=== PATIENT | female | born 1995 | race Hispanic/Latino ===

== ENCOUNTER 2019-07-21 14:48 | Emergency (ER) | payer OTHER, SELFPAY ==
[2019-07-21 14:53] VITALS: BP 135/71; PULSE 96; RESP 15; TEMP 36.8; O2SAT 99; BMI 21.9
--- NOTE | 2019-07-21 14:57 | ED_ITS ---
HPI - Back Pain/Injury General Chief Complaint: Back Pain/Injury Stated Complaint: LOWER BACK PAIN Time Seen by Provider: 07/21/19 14:50 Source: patient Limitations: no limitations History of Present Illness HPI Narrative: 23-year-old female nonsmoker with history of scoliosis presents with her mother and a chief complaint of severe, and worsening lumbar pain over the past 2 weeks. She denies any specific injury. She states that any motion and sitting for too long makes the pain much worse. She denies radicular symptoms such as radiation of the pain, or any signs consistent with cauda equina such as lower extremity weakness, trouble controlling bowel or bladder, foot drop or other. Her last images or 2 years ago in included a CT scan here which was essentially unremarkable except for a 22 degree left convex scoliosis MD Complaint: back pain Onset (ago): week(s) Duration: constant Similar Symptoms Previously: Yes Location: lumbar spine Severity: moderate Quality: aching Relieving factors: none Exacerbating factors: sitting upright and walking Associated symptoms: denies other symptoms Related Data Previous Rx's Medication Instructions Recorded norgestimate 0.25 mg-ethinyl 1 tab PO DAILY #28 tab 03/10/19 estradiol 35 mcg tablet ketorolac 10 mg PO Q6H PRN #14 tab 07/21/19 lidocaine [Lidoderm] 1 patch TOP DAILY #15 each 07/21/19 Allergies Allergy/AdvReac Type Severity Reaction Status Date / Time No Known Drug Allergies Allergy Verified 07/21/19 14:53 Review of Systems Constitutional Constitutional: Denies chills, Denies fatigue, Denies fever(s), Denies frequent falls, Denies lethargy and Denies weakness Eyes Eyes: Denies change in vision, Denies eye discharge, Denies irritation and Denies loss of vision ENT Ears, Nose, Mouth, and Throat: Denies change in voice, Denies dizziness, Denies neck pain, Denies sore throat and Denies throat swelling Cardiovascular Cardiovascular: Denies chest pain, Denies irregular heart rhythm, Denies lightheadedness, Denies palpitations, Denies dyspnea, Denies dyspnea on exertion and Denies orthopnea Respiratory Respiratory: Denies cough, Denies dyspnea, Denies dyspnea on exertion and Denies wheezing Gastrointestinal Gastrointestinal: Denies abdominal pain, Denies change in bowel habits, Denies diarrhea, Denies nausea and Denies vomiting Genitourinary Genitourinary: Denies hematuria, Denies flank pain, Denies urinary incontinence and Denies urinary urgency Musculoskeletal Musculoskeletal: Reports back pain, Denies muscle weakness, Denies neck pain, Denies numbness and Denies tingling Integumentary/Breasts Skin/Breast: Denies pruritus, Denies erythema, Denies rash and Denies wounds Neurologic Neurologic: Denies behavioral changes, Denies confusion, Denies dizziness, Denies frequent falls, Denies loss of vision, Denies numbness, Denies tingling and Denies weakness Psychiatric Psychiatric: Denies anxiety, Denies behavioral changes, Denies confusion, Denies depression, Denies homicidal ideation and Denies suicidal ideation Endocrine Endocrine: Denies fatigue, Denies flushing and Denies palpitations Hematologic/Lymphatic Hematologic/Lymphatic: Denies easy bruising Allergic/Immunologic Allergic/Immunologic: Denies urticaria, Denies throat swelling and Denies wheezing Patient History Surgical History History of third molar tooth extraction Social History Smoking Status: Never smoker alcohol intake frequency: holidays/special occasions only Substance Use Type: does not use Exam Narrative Exam Narrative: GEN: AOx3 and in mild distress EYES: Pupils are equal, round, and reactive to light and accommodation. Extraoccular muscles are intact bilaterally. There is no subconjunctival hemorrhage or exudate. CHEST: Lungs are clear to auscultation bilaterally and free of wheezes, rales, or rhonchi. Heart rate is regular rhythm, there are no murmurs, clicks, rubs, or gallops. There is no chest wall tenderness. ABD: Abdomen is soft and nontender. There is no guarding or rebound. Bowel sounds are normal in all 4 quadrants. There is no mass or organomegaly. EXT: Full painless ROM of all extremities with no loss of sensation or strength. SKIN: Warm, pink, and dry. No erythema or rash BACK: body rolling machine tender but free of any obvious external abnormalities. Patient exam notes decreased range of motion and muscle spasm, but no CVA tenderness, or vertebral point tenderness. There are no symptoms of cauda equina such as saddle anesthesia, and decreased reflexes, decreased sensation or strength. Initial Vital Signs Initial Vital Signs: Vital Signs Temperature 98.2 F 07/21/19 14:53 Pulse Rate 96 H 07/21/19 14:53 Respiratory Rate 15 07/21/19 14:53 Blood Pressure 135/71 07/21/19 14:53 Pulse Oximetry 99 07/21/19 14:53 Course Orders Ordered: ED Orders 07/21/19 14:58 XR lumbar spine 2-3V Stat Discontinued Medications Ketorolac Tromethamine (Toradol) 60 mg IM NOW ONE Stop: 07/21/19 15:32 Last Admin: 07/21/19 15:39 Dose: 60 mg Documented by: KRIS Vital Signs Vital signs: Vital Signs - 8 hr 07/21/19 14:53 Temperature 98.2 F Pulse Rate 96 H Respiratory Rate 15 Blood Pressure 135/71 Pulse Oximetry 99 MDM - Back Pain/Injury MDM Narrative Medical decision making narrative: Multiple etiologies of back pain considered including; Epidural abscess, cauda equina, mass occupying lesion, and other considered Discharge Plan Departure Patient Disposition: Home Clinical Impression: Acute back pain Qualifiers: Back pain location: low back pain Back pain laterality: right Sciatica presence: without sciatica Qualified Code(s): M54.5 - Low back pain Instructions: DI for Low Back Pain Activity Restrictions/Additional Instructions: *You have been diagnosed with [low back pain] *What to do: *Take medications as directed *Follow up with your primary care provider in 2-3 days, call for an appointment. Let them know you were seen in the Emergency Department and that we ask that you be seen in follow up *Return to ER if you should have any new, worsening or concerning symptoms, such as [increasing pain or neurologic symptoms including trouble with her bowel, bladder, weakness of your legs or numbness in her groin.] Prescriptions: New ketorolac 10 mg tablet 10 mg PO Q6H PRN (Reason: pain) Qty: 14 RF: 0 lidocaine [Lidoderm] 5 % adhesive patch,medicated 1 patch TOP DAILY Qty: 15 RF: 0 No Action norgestimate-ethinyl estradiol [Estarylla] 0.25-35 mg-mcg tablet 1 tab PO DAILY Qty: 28 RF: 11 Referrals: Diana Singh MD [Primary Care Provider] -
--- NOTE | 2019-07-21 14:58 | DI.RAD.S_ITS ---
PROCEDURE: XR LUMBAR SPINE 2-3V INDICATIONS: lumbar pain TECHNIQUE: 3 views of the lumbar spine were acquired. COMPARISON: [facility], CT, L-SPINE WITHOUT CONTRAST, 09/19/2017, 13:15. FINDINGS: Bones: There are 5 lumbar-type vertebral bodies. The lowest intervertebral disk space is designated as L5-S1. The vertebral body heights are well-maintained without evidence to suggest an acute compression fracture. The bone mineralization is within normal limits. On the frontal view, there is mild levoconvex curvature, centered at the L3 level that measures approximately 12?. This appears to be less prominent on the current exam when compared to the CT of the lumbar spine. No significant degenerative changes of the lumbar spine are evident. Soft tissues: The soft tissues of the imaged abdomen and pelvis are within normal limits. IMPRESSION: 1. No acute fractures or significant degenerative changes of the lumbar spine. 2. Mild levoconvex curvature of the lumbar spine is less pronounced on this study when compared to the lumbar CT, which may be related to differences in positioning and technique. Dictated by: Raghav Grewal M.D. on 07/21/2019 at 14:43 Approved by: Raghav Grewal M.D. on 07/21/2019 at 14:46
[2019-07-21] MEDS: KETOROLAC 60 MG/2 ML VIAL IM (15:39)
--- NOTE | 2019-07-21 15:45 | PC.NURSE ---
Patient refuses ketoroac IM injection.
== END 2019-07-21 16:05 | disposition home or self-care (01) ==
LOC: ED 15:14
PROVIDERS: Emergency Provider Emergency Medicine; PCP Family Medicine
DX: M54.5 Low back pain (principal)
CPT/HCPCS: 72100; 96372; 99282; 99283; J1885

== ENCOUNTER → 2022-05-07 16:14 | Outpatient (CLI) | payer OTHER, SELFPAY ==
[2022-05-07 17:50] LABS: TSH w/ Reflex to FT4 0.84 uIU/mL (0.47-4.68)
== END ==
PROVIDERS: PCP Family Medicine; Referring Provider Family Medicine; Visit Provider Family Medicine
DX: L85.3 Xerosis cutis (principal)
CPT/HCPCS: 36415; 84443

== ENCOUNTER → 2022-07-27 07:46 | Outpatient (CLI) | payer OTHER, SELFPAY ==
[2022-07-27 11:13] LABS: HCG Quantitative /Beta subunit 26671 mIU/mL
== END ==
PROVIDERS: PCP Family Medicine; Referring Provider Family Medicine; Visit Provider Family Medicine
DX: Z34.90 Encounter for supervision of normal pregnancy, unspecified, unspecified trimester (principal)
CPT/HCPCS: 36415; 84702

== ENCOUNTER → 2022-07-30 07:51 | Outpatient (CLI) | payer OTHER, SELFPAY ==
[2022-07-30 09:29] LABS: HCG Quantitative /Beta subunit 48912 mIU/mL
== END ==
PROVIDERS: PCP Family Medicine; Referring Provider Family Medicine; Visit Provider Family Medicine
DX: Z34.90 Encounter for supervision of normal pregnancy, unspecified, unspecified trimester (principal)
CPT/HCPCS: 36415; 84702

== ENCOUNTER → 2022-10-31 07:43 | Outpatient (CLI) | payer OTHER, SELFPAY ==
--- NOTE | 2022-10-31 07:45 | DI.US.S_ITS ---
PROCEDURE: US OB >= 14 WEEKS FETUS INDICATIONS: ANATOMY SCAN OUTSIDE/PRIOR DATING DATA: Last menstrual period (LMP): 06/18/2022 LMP-based estimated date of delivery (EMILIANO): 03/25/2023. First dating scan (date and location): 08/24/2022. Estimated date of delivery (EMILIANO) from first dating scan: 03/24/2023. Working EMILIANO is 03/25/2023 TECHNIQUE: Real-time scanning was performed of the fetus, with image documentation and biometric measurements. COMPARISON: None. FINDINGS: General: A single living intrauterine gestation is present. Presentation: Vertex. Placenta: Placental position is posterior , without previa. Amniotic fluid index: 15.0 cm, normal range is 5-24 cm. Single deepest vertical pocket is 4.9 cm. heart rate: 153 beats per minute. Maternal cervical canal: 2.9 cm long. Normal lower limit is 2.5 cm. biometrics: Biparietal diameter: 20 weeks Head circumference: 19 weeks 4 days Abdominal circumference: 19 weeks 1 day Femur length: 21 weeks 2 days Clinically estimated gestational age: 19 weeks 2 days Composite gestational age from present scan: 1 weeks 2 days Estimated weight and percentile: 332 g, 88th percentile Anatomic survey: Neuro: Ventricles are non-dilated at less than 10 mm. Cisterna magna is normal at 3-11 mm. Cerebellum is normal in size and morphology. Nuchal skin fold: Normal at less than 6 mm between 14-21 weeks gestational age. Face: Nose and lips, facial profile are normal. Spine: No evidence for spina bifida. Heart: 4-chambered heart is present, with normal ventricular outflow tracts. Diaphragm: Diaphragm is intact. Stomach: Left-sided stomach is present with intraluminal small echogenic focus likely debris Kidneys: No hydronephrosis. Normal is less than 5 mm in 2nd trimester, less than 7 mm in 3rd trimester. Cord: 3-vessel cord has orthotopic insertion. Marginal placental cord insertion site roughly 1.4 cm from the left placental edge. Bladder: Normal in size. Extremities: All 4 extremities identified. IMPRESSION: 1. Single living IUP redemonstrated and interval growth is upper limits of normal. 2. Echogenic focus within the stomach likely debris; otherwise anatomic survey is normal and short-term follow-up ultrasound in 3-4 weeks to further assess the stomach is recommended. 3. Marginal placental cord insertion site which also can be reassessed on follow- up exam. We strive to produce accurate, complete, and clear reports of imaging services. To assist us in improving patient care, this report was composed using standard report templates and voice recognition software. Therefore, it may contain abnormal punctuation, insertions and/or omissions. Occasional wrong-word or sound-alike substitutions may occur. Though we review the report and make efforts to correct it, we do recommend that the report be read carefully in proper context to recognize any text inaccuracies. Dictated by: Ian FONSECA Interpreted: Jd Hawkins MD on 11/01/2022 at 12:05 Transcribed by: DAMIAN on 11/01/2022 at 12:09 Approved by: Jd Hawkins M.D. on 11/02/2022 at 8:33
== END ==
PROVIDERS: PCP Family Medicine; Referring Provider Family Medicine; Visit Provider Family Medicine
DX: Z36.89 Encounter for other specified antenatal screening (principal); Z3A.19 19 weeks gestation of pregnancy
CPT/HCPCS: 76811

== ENCOUNTER → 2022-11-27 06:48 | Outpatient (CLI) | payer OTHER, SELFPAY ==
--- NOTE | 2022-11-27 06:49 | DI.US.S_ITS ---
PROCEDURE: US OB FOLLOW UP INDICATIONS: re-evaluate stomach, cord insertion site OUTSIDE/PRIOR DATING DATA: Last menstrual period (LMP): 06/18/2022 LMP-based estimated date of delivery (EMILIANO): 03/25/2023 First dating scan (date and location): 08/24/2022 Estimated date of delivery (EMILIANO) from first dating scan: 03/24/2023 The calculations are made using the clinical EMILIANO of 03/25/2023 TECHNIQUE: Real-time scanning was performed of the fetus, with image documentation. Endovaginal scanning: Not performed COMPARISON: [facility], US, US OB >= 14 WEEKS FETUS, 10/31/2022, 7:53. FINDINGS: A single living intrauterine gestation is present. Presentation: Transverse Placenta: Placental position is posterior, without previa. Amniotic fluid index: 17.4 cm, normal range is 5-24 cm. Single deepest vertical pocket is 5.2cm. heart rate: 136beats per minute. Maternal cervical canal: 2.8 cm long. Normal lower limit is 2.5 cm. Clinically estimated gestational age: 23 weeks 1 day Trace debris versus artifact is seen within the stomach, which is less prominent and no longer appears masslike when compared to the ultrasound from 10/31/2022. Placental cord insertion measures approximately 1.9-2 cm from the left placental margin. IMPRESSION: 1. Single live intrauterine . 2. Trace nonspecific non-masslike debris within the stomach, lwhich appears decreased when compared to the ultrasound from 10/31/2022. 3. Borderline marginal placental insertion of the umbilical cord, with insertion measuring 1.9-2.0 cm from the left placental margin. Approved by: Ronnell Burt M.D. on 11/27/2022 at 10:39
== END ==
PROVIDERS: PCP Family Medicine; Referring Provider Family Medicine; Visit Provider Family Medicine
DX: Z36.2 Encounter for other antenatal screening follow-up (principal); Z3A.23 23 weeks gestation of pregnancy
CPT/HCPCS: 76816

== ENCOUNTER → 2022-12-11 11:04 | Outpatient (CLI) | payer OTHER, SELFPAY ==
[2022-12-11 11:43] LABS: Add Manual Diff / Slide Review NO; Basophils Absolute Auto 0 /uL (0-100); Eosinophils Absolute Auto 0 /uL (0-450); Eosinophils Percent Auto 0.5 % (2-4); Hematocrit 35.6 % (36-46); Hemoglobin 12.3 g/dL (12.0-16.0); Lymphocytes Absolute Auto 1500 /uL (1100-4500); Lymphocytes Percent Auto 15.1 % (25-40); Mean Corpuscular HGB Conc 34.5 % (30-36); Mean Corpuscular Hemoglobin 30.3 PG (26-34); Mean Corpuscular Volume 87.8 fL (80-100); Monocytes Absolute Auto 500 /uL (0-900); Neutrophils Absolute Auto 7700 /uL (1500-7000); Neutrophils Percent Auto 79.4 % (50-75); Platelet Count 220 X10^3/uL (150-400); Red Blood Cell Count 4.05 X10^6/uL (4.0-5.2); Red Cell Distribution Width 12.4 % (11.6-14.8); White Blood Cell Count 9.7 X10^3/uL (4.5-11.0)
[2022-12-11 12:52] LABS: HIV 1 & 2 Ab/Ag 4th Gen Combo NEGATIVE (NEGATIVE); Hep C Virus Ab w/Reflex Quant NEGATIVE s/c (NEGATIVE); Hepatitis B Surface Antigen NEGATIVE s/c (NEGATIVE); Rubella Antibody IgG 17.4 IU/mL (>15)
[2022-12-12 06:14] LABS: RPR Screen Non Reactive (Non Reactive)
[2022-12-12 12:47] LABS: Varicella IgG Antibody 586 index (Immune >165)
== END ==
PROVIDERS: PCP Family Medicine; Referring Provider Family Medicine; Visit Provider Family Medicine
DX: Z34.01 Encounter for supervision of normal first pregnancy, first trimester (principal); Z3A.25 25 weeks gestation of pregnancy
CPT/HCPCS: 36415; 80055; 86787; 86803; 86850; 86900; 86901; 87389

== ENCOUNTER → 2023-01-04 08:17 | Outpatient (CLI) | payer OTHER, SELFPAY ==
[2023-01-04 12:45] LABS: GTT (PREG) 1 Hour PP 50gm Dose 131 mg/dL (76-139)
== END ==
PROVIDERS: PCP Family Medicine; Referring Provider Family Medicine; Visit Provider Family Medicine
DX: Z34.90 Encounter for supervision of normal pregnancy, unspecified, unspecified trimester (principal); Z3A.25 25 weeks gestation of pregnancy
CPT/HCPCS: 36415; 82950

== ENCOUNTER → 2023-02-26 08:44 | Outpatient (CLI) | payer OTHER, SELFPAY ==
[2023-02-27 10:25] LABS: Strep Grp B PCR POS for Grp B Strep
== END ==
PROVIDERS: PCP Family Medicine; Visit Provider Family Medicine
DX: Z34.93 Encounter for supervision of normal pregnancy, unspecified, third trimester (principal); Z3A.36 36 weeks gestation of pregnancy; Z36.85 Encounter for antenatal screening for Streptococcus B
CPT/HCPCS: 87653

== ENCOUNTER 2023-03-22 10:52 | Inpatient (IN) | payer OTHER, SELFPAY ==
--- NOTE | 2023-03-22 12:07 | PM.OBHP.IH.1 ---
OB HPI Date/Time Date of admission: 03/22/23 Date Patient Seen: 03/22/23 History of Present Condition Chief complaint: OB EMILIANO Calculator Estimated Delivery Date Method Current WG Current Estimate 03/25/23 Manual 39w 4d Final EMILIANO - TRACEY Other Estimates 03/25/23 LMP (Certain) 39w 4d 03/24/23 Ultrasound #1 39w 5d Estimated Gestational Age (weeks): 39w4d : 1 Para: 0 Narrative: 27yo at 39w4d here with leaking fluid. She reports feeling warm fluid between her legs around 8pm last night. She has continued to leak since then. No vaginal bleeding or contractions. She is feeling her baby move regularly. care: good care, initiated at week # (9) and pounds weight gain (26) Dating criteria OB: LMP confirmed by 1st trimester US Ultrasounds: normal 1st trimester US and abnormal US findings (marginal cord insertion 1.9-2cm from edge) Obstetrical complications: none Medical complications OB: none Preadmission Labs Last OB Lab Results: Blood Type B Negative 12/11/22 11:07 Antibody Screen Negative 12/11/22 11:07 Hematocrit 37.8 % (36-46) 03/22/23 12:30 Hemoglobin 12.7 g/dL (12.0-16.0) 03/22/23 12:30 Hepatitis B Surface Antigen Negative s/c (NEGATIVE) 12/11/22 11:07 Hepatitis C Antibody Negative s/c (NEGATIVE) 12/11/22 11:07 Rubella Antibody 17.4 IU/mL (>15) 12/11/22 11:07 Varicella-Zoster IgG Antibody 586 index (Immune >165) 12/11/22 11:07 Glucose 1 Hour 131 mg/dL (76-139) 01/04/23 09:57 Group B Streptococcus (PCR) Pos for grp b strep H 02/26/23 08:44 -: Urine: negative External Labs -: Urine: negative Evaluation Evaluation Baseline heart rate: 130 Variability: Moderate (11-25) monitor accelerations: Present Monitor Decelerations: Absent Contraction Frequency (minutes): 5 Uterine Contraction Intensity: Mild Status: Category l Dilation (cm): 6 Effacement (%): 100 station: 0 Position of cervix: anterior Consistency: soft [facility] Medical History (Updated 01/23/23 @ 15:42 by Diana Singh MD) Impetigo Psoriasis Scoliosis Surgical History (Updated 09/17/22 @ 21:30 by Kaylin Desir) Anesthesia History of third molar tooth extraction Family History (Updated 09/17/22 @ 21:31 by Kaylin Desir) Mother Hypothyroidism Thyroid nodule Grandmother Psoriasis Lung cancer Ovarian cancer Grandfather Lung cancer Family/Other Breast cancer Family/Other Hypothyroidism Grandfather Diabetes mellitus Family/Other Breast cancer Social History marital status: unmarried,living together number of children: 0 household members: significant other lives independently: Yes housing: house pets and animals: Yes (3 dogs; aware of toxo precautions outdoors) education level: master's degree occupational status: employed current occupational exposures/hazards: No special kiran needs: No travel history: over 6 months ago seatbelt use: always water heater temp set < 120 deg: Yes working smoke detector in home: Yes fire extinguisher in home: Yes carbon monox detector in home: Yes firearms in home: Yes firearms unloaded and locked: Yes do you feel safe at home: Yes Smoking Status: Never smoker second hand exposure: No alcohol intake: former substance use type: marijuana during the past year weight has: increased > 10 lbs well-balanced diet: about half the time daily servings fruits/ve-4 caffeine: Yes (aware of 200mg limit) Type(s) of exercise: walking frequency: daily Meds Home Medications and Allergies Home Medications Medication Instructions Recorded Confirmed Type prenat.vits,jeremiah,[id number] 1 tab PO DAILY 08/08/22 03/20/23 History Allergies Allergy/AdvReac Type Severity Reaction Status Date / Time shrimp Allergy Intermediate Swelling Verified 03/20/23 14:44 of Lip/Tongue/Throat OB Exam Narrative Exam Narrative: Gen: NAD, sitting comfortably in bed, appears well CV: RRR, no murmurs Resp: clear to auscultation bilaterally Abd: soft, nontender, gravid Ext: no edema Objective Labs 03/22/23 12:30 Assessment and Plan Assessment and Plan Assessment and Plan narrative: 27yo at 39w4d here with SROM at home. Pt has now been ruptured for 17hrs, does have cervical change since last clinic appt. Contractions irregular. GBS positive, Rh negative. - Expectant management, anticipate - FHT reassuring - Start GBS prophylaxis with ampicillin - Epidural for pain control if desired - Due to duration since rupture and irregular nature of contractions, start pitocin and titrate as tolerated - Cord blood after delivery due to Rh status
[2023-03-22 13:00] LABS: Add Manual Diff / Slide Review NO; Basophils Absolute Auto 100 /uL (0-100); Basophils Percent Auto 0.8 % (0-2); Eosinophils Absolute Auto 100 /uL (0-450); Eosinophils Percent Auto 0.8 % (2-4); Hematocrit 37.8 % (36-46); Hemoglobin 12.7 g/dL (12.0-16.0); Lymphocytes Absolute Auto 2000 /uL (1100-4500); Lymphocytes Percent Auto 19.8 % (25-40); Mean Corpuscular HGB Conc 33.7 % (30-36); Monocytes Absolute Auto 600 /uL (0-900); Monocytes Percent Auto 6.2 % (3-14); Neutrophils Absolute Auto 7200 /uL (1500-7000); Neutrophils Percent Auto 72.4 % (50-75); Platelet Count 182 X10^3/uL (150-400); Red Blood Cell Count 4.55 X10^6/uL (4.0-5.2); Red Cell Distribution Width 13.9 % (11.6-14.8); White Blood Cell Count 9.9 X10^3/uL (4.5-11.0)
[2023-03-22] MEDS: AMPICILLIN 2,000 MG in SODIUM CHLORIDE 0.9% 100 ML 200 MG IV (13:30)
[2023-03-22] MEDS: LACTATED RINGERS 1,000 ML 100 ML IV (14:06)
[2023-03-22] MEDS: OXYTOCIN PREMIX 30 UNIT/500 ML PLAST..BAG IV (14:06)
--- NOTE | 2023-03-22 16:15 | P.PNOB_ITS ---
Date/Time Date Patient Seen: 03/22/23 Pain Control Pain control: tolerating well Pelvic Exam Dilation (cm): 8 Effacement (%): 100 station: +1 Contractions Contractions on admission: irregular Monitor mode: External Pitocin rate (mU/min): 4 Contraction frequency (min): 3 Contraction pattern: Regular Contraction intensity: Strong/Firm Status status: Category l Heart Rate Baseline: 135 Monitor Accelerations: Present Monitor Decelerations: Absent Monitor Variability: Moderate Assessment and Plan Comments: 27yo at 39w4d here with SROM at home, in active labor on pitocin. GBS posi tive, Rh negative. - Expectant management, anticipate - FHT reassuring - Continue ampicillin for GBS prophylaxis - Epidural for pain control if desired - Continue pitocin, titrate as tolerated *Dr Jay to assume care. She is aware of the pts status and progress in labor.
[2023-03-22] MEDS: AMPICILLIN 1,000 MG in SODIUM CHLORIDE 0.9% 100 ML 200 MG IV (17:52)
--- NOTE | 2023-03-22 21:08 | PM.OBPRVD ---
Events: Rh Incompatibility (Rh neg) Labor & Delivery Delivery date: 03/22/23 Cervical ripening method: none Induction method: none Delivery monitor: external FHT, external uterine and internal FHT Route of delivery: Episiotomy description: Right Mediolateral L&D Laceration Description: None Delivery repair: vicryl Estimated blood loss (mL): 200 Anesthesia Type: Local Narrative: patient found to be 10/100/+1. With adequate maternal effort, descent of head noted. Patient consented for RML to assist with delivery of head. injected with 10cc of lidocaine without epi. From the vertex position, a viable male weighing 3956g (8lbs 11.5oz) was delivered atraumatically. APGARs 8/9. Delayed cord clamping x 60 seconds done. Cord blood collected. placenta delivered spontaneously. Repair of RML with 2-0, 3-0 vicryl in the usual fashion. EBL 200cc patient tolerated well. Plan for aftercare: Routine care
[2023-03-22] MEDS: IBUPROFEN 600 MG TABLET PO (21:50)
[2023-03-22] MEDS: DERMOPLAST SPRAY 20% 60 ML 1 SPRAY TOP (21:50)
[2023-03-22] MEDS: ACETAMINOPHEN 325 MG TABLET 650 MG PO (21:52)
[2023-03-22] MEDS: DOCUSATE 100 MG CAPSULE PO (21:53)
[2023-03-23] MEDS: IBUPROFEN 600 MG TABLET PO ×2 (04:10→11:40)
[2023-03-23 08:24] LABS: Add Manual Diff / Slide Review NO; Basophils Absolute Auto 0 /uL (0-100); Basophils Percent Auto 0.2 % (0-2); Eosinophils Absolute Auto 0 /uL (0-450); Eosinophils Percent Auto 0.2 % (2-4); Hematocrit 30.4 % (36-46); Hemoglobin 10.4 g/dL (12.0-16.0); Lymphocytes Absolute Auto 2000 /uL (1100-4500); Lymphocytes Percent Auto 14.9 % (25-40); Mean Corpuscular HGB Conc 34.1 % (30-36); Mean Corpuscular Volume 82.2 fL (80-100); Monocytes Absolute Auto 700 /uL (0-900); Monocytes Percent Auto 5.5 % (3-14); Neutrophils Absolute Auto 10400 /uL (1500-7000); Neutrophils Percent Auto 79.2 % (50-75); Platelet Count 147 X10^3/uL (150-400); Red Cell Distribution Width 13.8 % (11.6-14.8); White Blood Cell Count 13.2 X10^3/uL (4.5-11.0)
[2023-03-23] MEDS: DOCUSATE 100 MG CAPSULE PO (11:39)
[2023-03-23] MEDS: PRENATAL VIT,CALC/IRON/FOLIC 1 TABLET 1 TAB PO (11:39)
[2023-03-23] MEDS: ACETAMINOPHEN 325 MG TABLET 650 MG PO (11:39)
[2023-03-23 13:21] VITALS: BP 119/75; PULSE 86; RESP 16; TEMP 36.6
--- NOTE | 2023-03-23 13:26 | P.DS_ITS ---
Discharge Providers Provider Date of admission: 03/22/23 10:52 Discharge Date: 03/23/23 Primary care physician: Diana Singh MD Consults: 03/23/23 20:56 Consult to Advisor Advocate Angel Co Founder Routine Comment: Discharge provider: Concetta Jay MD Summary Hospital Course Date Patient Seen: 03/23/23 Time Patient Seen: 01:20 Diagnoses: vaginal delivery Hospital Course: 27yo G1 at 39.4 admitted in labor. progressed to complete and delivered viable male weighing 8lbs 11.5 oz, APGARs 8/9. please delivery note for complete details. course was unremarkable. She is breast feeding well. lochia moderate. minimal pain and discomfort with urination ambulating / voiding tolerating regular diet Peripartum Data Infant Delivery Method: Natural Vaginal Laceration Description: None Episiotomy description: Right Mediolateral complications: none Status at Discharge Cognitive/behavioral status at discharge: oriented Functional status at discharge: independent ambulation Overall status at discharge: patient is back to baseline Time Spent with Patient Time attestation: Total time spent providing and/or coordinating discharge services: Time spent: Greater than 30 minutes Specific discharge activities: nothing per vagina x 6 weeks Objective Labs 03/23/23 08:20 Labs: Laboratory Results - last 24 hr 03/22/23 03/23/23 12:30 08:20 WBC 13.2 H RBC 3.70 L Hgb 10.4 L Hct 30.4 L MCV 82.2 MCH 28.0 MCHC 34.1 RDW 13.8 Plt Count 147 L Neut % (Auto) 79.2 H Lymph % (Auto) 14.9 L Sawyer % (Auto) 5.5 Eos % (Auto) 0.2 L Baso % (Auto) 0.2 Neut # (Auto) 71566 H Lymph # (Auto) 2000 Sawyer # (Auto) 700 Eos # (Auto) 0 Baso # (Auto) 0 Blood Type B Negative Antibody Screen Positive Antibody Identification Anti-D Exam Vital Signs (past 8 hours): - 03/23/23 13:21 Temperature 97.8 F Pulse Rate 86 Respiratory Rate 16 Blood Pressure 119/75 Const General: cooperative Nutritional Appearance: average body habitus Chest Chest: normal inspection of the chest Breast inspection: normal inspection of the breasts Resp Effort & Inspection: normal respiratory effort and able to speak in complete sentences Auscultation: clear to auscultation bilaterally Cardio Rate: regular rate Rhythm: regular rhythm GI Inspection: normal to inspection Palpation: soft and no hepatosplenomegaly Percussion: normal to percussion External Female Exam: normal external appearance Speculum Exam - Vagina: normal appearance of the vagina Other: Fundus 2cm below umbilicus Skin General: no rashes or lesions noted Extrem General: normal to inspection Discharge Plan Discharge Plan Patient Disposition: Home Discharge orders & Medications Prescriptions: New ibuprofen 600 mg Tablet 600 mg PO Q6HR PRN (Reason: Pain, Mild (1-3)) 14 Days Qty: 30 0RF Continued prenat.vits,jeremiah,[id number] Tablet 1 tab PO DAILY Follow up/Referrals: Diana Singh MD [Primary Care Provider] - Visit Report/Discharge Packet Stand Alone Forms: Patient Portal/API, Stroke Signs & Symptoms Discharge Data Primary Care Provider: Diana Singh Attending Provider: Diana Singh Admit Date/Time: 03/22/23 10:52
[2023-03-23 16:47] VITALS: BP 116/71; PULSE 90; RESP 16; TEMP 36.8
== END 2023-03-23 17:42 | disposition home or self-care (01) | DRG 807 ==
PROVIDERS: Obstetrics & Gynecology; Admitting Provider Family Medicine; PCP Family Medicine; Referring Provider Family Medicine; Visit Provider Family Medicine
DX: O99.824 Streptococcus B carrier state complicating childbirth (principal); Z37.0 Single live birth; Z3A.39 39 weeks gestation of pregnancy; Z67.21 Type B blood, Rh negative
CPT/HCPCS: 36415; 59050; 59400; 59409; 85025; 86850; 86870; 86900; 86901; G0378; G0379; J0290; J2590

== ENCOUNTER → 2024-06-08 07:02 | Outpatient (CLI) | payer OTHER, SELFPAY ==
--- NOTE | 2024-06-08 07:03 | DI.US.S_ITS ---
PROCEDURE: US OB <= 14 WEEKS FETUS INDICATIONS: Dating and viability OUTSIDE/PRIOR DATING DATA: Last menstrual period (LMP): 03/26/2024 LMP-based estimated date of delivery (EMILIANO): 12/31/2024 First dating scan (date and location): 06/08/2024 Estimated date of delivery (EMILIANO) from first dating scan: 01/22/2025 TECHNIQUE: Real-time scanning was performed of the fetus and maternal pelvic organs, with image documentation. Endovaginal scanning was also performed to better visualize the fetus and maternal ovaries. COMPARISON: None. FINDINGS: [place]-rump length measures 1.3 cm. Ultrasound age is 7 weeks and 3 days. Heart motion is detected at a rate of 145 beats per minute. Cervical length is 3.6 cm. Right ovary is not seen. A left corpus luteum is present. IMPRESSION: Living intrauterine gestation at an ultrasound age of 7 weeks and 3 days. Please note this is not consistent with reported LMP. Clinical correlation is necessary. Dictated by: Jd Hawkins M.D. on 06/08/2024 at 12:58 Approved by: Jd Hawkins M.D. on 06/08/2024 at 12:59
== END ==
LOC: US 07:02
PROVIDERS: PCP Family Medicine; Referring Provider Family Medicine; Visit Provider Family Medicine
DX: Z34.81 Encounter for supervision of other normal pregnancy, first trimester (principal); Z3A.01 Less than 8 weeks gestation of pregnancy
CPT/HCPCS: 76801; 76817

== ENCOUNTER → 2024-07-15 09:35 | Outpatient (CLI) | payer OTHER, SELFPAY ==
[2024-07-15 10:08] LABS: Add Manual Diff / Slide Review NO; Basophils Absolute Auto 0 /uL (0-100); Basophils Percent Auto 0.2 % (0-2); Eosinophils Absolute Auto 0 /uL (0-450); Eosinophils Percent Auto 0.4 % (2-4); Hemoglobin 13.5 g/dL (12.0-16.0); Lymphocytes Absolute Auto 1600 /uL (1100-4500); Mean Corpuscular HGB Conc 35.5 % (30-36); Mean Corpuscular Hemoglobin 29.1 PG (26-34); Monocytes Absolute Auto 300 /uL (0-900); Monocytes Percent Auto 4.1 % (3-14); Neutrophils Absolute Auto 6300 /uL (1500-7000); Neutrophils Percent Auto 76.3 % (50-75); Platelet Count 212 X10^3/uL (150-400); Red Blood Cell Count 4.63 X10^6/uL (4.0-5.2); Red Cell Distribution Width 13.4 % (11.6-14.8); White Blood Cell Count 8.3 X10^3/uL (4.5-11.0)
[2024-07-15 10:49] LABS: Natera Collection Specimen Collected
[2024-07-15 11:16] LABS: Hepatitis B Surface Antigen NEGATIVE s/c (NEGATIVE); Rubella Antibody IgG 17.7 IU/mL (>15)
[2024-07-15 11:28] LABS: HIV 1 & 2 Ab/Ag 4th Gen Combo NEGATIVE (NEGATIVE); Hep C Virus Ab w/Reflex Quant NEGATIVE s/c (NEGATIVE)
[2024-07-15 11:43] LABS: Appearance Urine UA CLEAR; Bilirubin Urine UA NEGATIVE (NEGATIVE); Color Urine UA YELLOW; Glucose Urine UA NEGATIVE (Negative); Ketones Urine UA NEGATIVE (NEGATIVE); Leukocyte Esterase Urine UA 1+ (NEGATIVE); Nitrite Urine UA NEGATIVE (Negative); Occult Blood Urine UA NEGATIVE (Negative); Protein Urine UA NEGATIVE (Negative); Urobilinogen Urine UA 0.2 E.U./dL (0.2)
[2024-07-15 11:44] LABS: pH Urine UA 7.5 (4.5-8.0)
[2024-07-15 11:53] LABS: Bacteria Urine Moderate (10-30); Culture Indicated Urine Cult Not Indicated; RBC Urine None Seen (0-5/HPF); Squamous Epithelial Cell Urine 5-10 /HPF (0-5/HPF); Urine Volume 10mL (spun); WBC Urine 1-5/HPF (0-5/HPF)
== END ==
PROVIDERS: PCP Family Medicine; Referring Provider Family Medicine; Visit Provider Family Medicine
DX: Z34.01 Encounter for supervision of normal first pregnancy, first trimester (principal)
CPT/HCPCS: 36415; 80055; 81003; 81015; 86787; 86803; 86850; 86900; 86901; 87077; 87086; 87147; 87389

== ENCOUNTER → 2024-09-03 11:57 | Outpatient (CLI) | payer OTHER, SELFPAY ==
--- NOTE | 2024-09-03 11:58 | DI.US.S_ITS ---
PROCEDURE: US OB >= 14 WEEKS FETUS INDICATIONS: anatomy OUTSIDE/PRIOR DATING DATA: Last menstrual period (LMP): March 26, 2024. LMP-based estimated date of delivery (EMILIANO): December 31, 2024. First dating scan (date and location): June 08, 2024. Estimated date of delivery (EMILIANO) from first dating scan: January 22, 2025. The calculations are made using the ultra EMILIANO of January 22, 2025. TECHNIQUE: Real-time scanning was performed of the fetus, with image documentation and biometric measurements. Endovaginal scanning: Not performed COMPARISON: [facility], OB >= 14 WEEKS FETUS, 10/31/2022, 7:53. FINDINGS: General: A single living intrauterine gestation is present. Presentation: Vertex. Placenta: Placental position is anterior , without previa. Amniotic fluid index: 13.0 cm, normal range is 5-24 cm. Single deepest vertical pocket is 3.6 cm. heart rate: 143 beats per minute. Maternal cervical canal: 3.0 cm long. Normal lower limit is 2.5 cm. biometrics: Biparietal diameter: 5.0 cm, 21 weeks and 1 day Head circumference: 19.5 cm, 21 weeks and 5 days Abdominal circumference: 15.5 cm, 20 weeks and 5 days Femur length: 3.4 cm, 20 weeks and 5 days Clinically estimated gestational age: 19 weeks and 6 days Composite gestational age from present scan: 21 weeks and 1 day Estimated weight and percentile: 381 g which correlates with the 92nd percentile Anatomic survey: Neuro: Ventricles are non-dilated at less than 10 mm. Cisterna magna is normal at 3-11 mm. Cerebellum is normal in size and morphology. Nuchal skin fold: Normal at less than 6 mm between 14-21 weeks gestational age. Face: Nose and lips, facial profile are not well visualized Spine: No evidence for spina bifida. Heart: 4-chambered heart is present, with normal ventricular outflow tracts. Diaphragm: Diaphragm is intact. Stomach: Left-sided stomach is present. Kidneys: No hydronephrosis. Normal is less than 5 mm in 2nd trimester, less than 7 mm in 3rd trimester. Cord: 3-vessel cord has orthotopic insertion. Bladder: Normal in size. Extremities: All 4 extremities identified. IMPRESSION: Single living intrauterine gestation with estimated sonographic gestational age of approximately 21 weeks and 1 day. Expected interval growth has occurred. Estimated weight of approximately 381 g which correlates with the 92nd percentile for gestational age. The facial profile, nose and lips were not well visualized on this examination. Suggestion of possible mouth/lip abnormality. Recommend follow-up imaging for reassessment. Otherwise, unremarkable anatomy screening survey. We strive to produce accurate, complete, and clear reports of imaging services. To assist us in improving patient care, this report was composed using standard report templates and voice recognition software. Therefore, it may contain abnormal punctuation, insertions and/or omissions. Occasional wrong-word or sound-alike substitutions may occur. Though we review the report and make efforts to correct it, we do recommend that the report be read carefully in proper context to recognize any text inaccuracies. Dictated by: Sidney Shaw M.D. on 09/04/2024 at 0:06 Approved by: Sidney Shaw M.D. on 09/04/2024 at 0:12
== END ==
PROVIDERS: PCP Family Medicine; Referring Provider Family Medicine; Visit Provider Family Medicine
DX: Z34.82 Encounter for supervision of other normal pregnancy, second trimester (principal); Z3A.21 21 weeks gestation of pregnancy
CPT/HCPCS: 76811

== ENCOUNTER → 2024-09-14 08:16 | Outpatient (CLI) | payer OTHER, SELFPAY ==
[2024-09-14 10:46] LABS: GTT (PREG) 1 Hour PP 50gm Dose 131 mg/dL (76-139)
== END ==
PROVIDERS: PCP Family Medicine; Referring Provider Family Medicine; Visit Provider Family Medicine
DX: Z34.80 Encounter for supervision of other normal pregnancy, unspecified trimester (principal)
CPT/HCPCS: 36415; 82950

== ENCOUNTER → 2024-09-21 08:32 | Outpatient (CLI) | payer OTHER, SELFPAY ==
--- NOTE | 2024-09-21 08:34 | DI.US.S_ITS ---
PROCEDURE: US OB FOLLOW UP INDICATIONS: facial features not well visualized, poss issue w/mouth OUTSIDE/PRIOR DATING DATA: Last menstrual period (LMP): 03/26/2024 LMP-based estimated date of delivery (EMILIANO): 12/31/2024 First dating scan (date and location): 06/08/2024 Estimated date of delivery (EMILIANO) from first dating scan: 01/22/2025 The calculations are made using the working EMILIANO of 01/22/2025 TECHNIQUE: Real-time scanning was performed of the fetus, with image documentation. Endovaginal scanning: Not performed COMPARISON: [facility], OB >= 14 WEEKS FETUS, 09/03/2024, 12:08. [facility], OB FOLLOW UP, 11/27/2022, 7:05. FINDINGS: A single living intrauterine gestation is present. Presentation: Vertex Placenta: Placental position is anterior without previa. Amniotic fluid index: 14.1 cm, normal range is 5-24 cm. Single deepest vertical pocket is 5.4 cm. heart rate: 157 beats per minute. Maternal cervical canal: 4.7 cm long. Normal lower limit is 2.5 cm. Estimated gestational age from initial scan: 22 weeks, 3 days. facial profile is well visualized on the current study and is within normal limits. Questionable small mandible suggest clinical and sonographic follow-up. IMPRESSION: 1. Single live intrauterine gestation with fetus in vertex presentation. heart rate is 157 beats per minute. Normal MAVERIKC at 14.1 cm. Cervix is closed and measures 4.7 cm in length. 2. facial profile is visualized on the current study and are overall within normal limits. Questionable small mandible which may indicate micrognathia, suggest clinical correlation and ultrasound follow-up. Dictated by: Dean Shepard M.D. on 09/21/2024 at 10:08 Approved by: Dean Shepard M.D. on 09/21/2024 at 10:14
== END ==
PROVIDERS: PCP Family Medicine; Referring Provider Family Medicine; Visit Provider Family Medicine
DX: Z34.82 Encounter for supervision of other normal pregnancy, second trimester (principal); Z3A.22 22 weeks gestation of pregnancy
CPT/HCPCS: 76816

== ENCOUNTER → 2024-11-23 07:47 | Outpatient (CLI) | payer OTHER, SELFPAY ==
[2024-11-23 10:04] LABS: Add Manual Diff / Slide Review NO; Basophils Absolute Auto 0 /uL (0-100); Basophils Percent Auto 0.2 % (0-2); Eosinophils Absolute Auto 100 /uL (0-450); Hematocrit 34.1 % (36-46); Hemoglobin 11.7 g/dL (12.0-16.0); Lymphocytes Absolute Auto 1600 /uL (1100-4500); Lymphocytes Percent Auto 20.9 % (25-40); Mean Corpuscular HGB Conc 34.3 % (30-36); Mean Corpuscular Volume 81.6 fL (80-100); Monocytes Absolute Auto 300 /uL (0-900); Monocytes Percent Auto 4.4 % (3-14); Neutrophils Absolute Auto 5500 /uL (1500-7000); Neutrophils Percent Auto 73.5 % (50-75); Platelet Count 211 X10^3/uL (150-400); Red Blood Cell Count 4.18 X10^6/uL (4.0-5.2); Red Cell Distribution Width 12.3 % (11.6-14.8); White Blood Cell Count 7.5 X10^3/uL (4.5-11.0)
[2024-11-23 10:13] LABS: GTT (PREG) 1 Hour PP 50gm Dose 174 mg/dL (76-139)
== END ==
PROVIDERS: PCP Family Medicine; Referring Provider Family Medicine; Visit Provider Family Medicine
DX: Z34.93 Encounter for supervision of normal pregnancy, unspecified, third trimester (principal); Z3A.27 27 weeks gestation of pregnancy; Z3A.28 28 weeks gestation of pregnancy
CPT/HCPCS: 36415; 82950; 85025

== ENCOUNTER → 2024-11-25 07:53 | Outpatient (CLI) | payer OTHER, SELFPAY ==
[2024-11-25 09:00] LABS: Glucose Fasting Gestational 76 mg/dL (76-95)
[2024-11-25 10:06] LABS: Glucose 1 Hour Gest 163 mg/dL (76-180)
[2024-11-25 11:20] LABS: Glucose Tol Interp,Gestational INTERPRETATION
[2024-11-25 12:26] LABS: Glucose 3 Hour Gest 124 mg/dL (76-140)
[2024-11-25 12:54] LABS: Glucose 2 Hour Gest 173 mg/dL (76-155)
== END ==
PROVIDERS: PCP Family Medicine; Referring Provider Family Medicine; Visit Provider Family Medicine
DX: Z34.80 Encounter for supervision of other normal pregnancy, unspecified trimester (principal)
CPT/HCPCS: 36415; 82951; 82952

== ENCOUNTER → 2024-12-22 13:49 | Outpatient (CLI) | payer OTHER, SELFPAY ==
[2024-12-23 15:05] LABS: Strep Grp B PCR POS for Grp B Strep
== END ==
PROVIDERS: PCP Family Medicine; Visit Provider Family Medicine
DX: Z34.80 Encounter for supervision of other normal pregnancy, unspecified trimester (principal)
CPT/HCPCS: 87653

== ENCOUNTER 2025-01-10 15:09 | Inpatient (IN) | payer OTHER, SELFPAY ==
[2025-01-10 17:27] LABS: Add Manual Diff / Slide Review NO; Basophils Absolute Auto 0 /uL (0-100); Basophils Percent Auto 0.4 % (0-2); Eosinophils Absolute Auto 100 /uL (0-450); Eosinophils Percent Auto 0.6 % (2-4); Hematocrit 34.8 % (36-46); Hemoglobin 11.5 g/dL (12.0-16.0); Lymphocytes Absolute Auto 2400 /uL (1100-4500); Lymphocytes Percent Auto 26.2 % (25-40); Mean Corpuscular Hemoglobin 25.6 PG (26-34); Mean Corpuscular Volume 77.7 fL (80-100); Monocytes Absolute Auto 500 /uL (0-900); Monocytes Percent Auto 5.1 % (3-14); Neutrophils Absolute Auto 6100 /uL (1500-7000); Neutrophils Percent Auto 67.7 % (50-75); Platelet Count 210 X10^3/uL (150-400); Red Blood Cell Count 4.47 X10^6/uL (4.0-5.2); Red Cell Distribution Width 13.6 % (11.6-14.8)
[2025-01-10 17:53] VITALS: BP 122/69
[2025-01-10] MEDS: LACTATED RINGERS 1,000 ML 100 ML IV (18:20)
[2025-01-10] MEDS: AMPICILLIN 2,000 MG in SODIUM CHLORIDE 0.9% 100 ML 200 MG IV (18:22)
--- NOTE | 2025-01-10 20:22 | P.HPOB_ITS ---
OB HPI Date/Time Date of admission: 01/10/25 Date Patient Seen: 01/10/25 Time Patient Seen: 20:22 History of Present Condition Chief complaint: OBS EMILIANO Calculator 2 Estimated Delivery Date Method Current WG Current Estimate 01/22/25 Ultrasound #1 38w 2d Other Estimates 12/31/24 LMP (Certain) 41w 3d Estimated Gestational Age (weeks): 38w2d : 2 Para: 1 Narrative: Pt is a 29yo at 38w2d who presented with regular painful contractions. Contractions started around 11am, increasing in intensity and frequency to every 4min prior to presentation. No LOF or vaginal bleeding. She is feeling her baby move regularly. The pts was complicated by LGA and small jaw seen on anatomy u/s. F/U u/s showed growth at the 83rd percentile at MFM. MFM u/s did not confirm small jaw, but did note ventricular asymmetry. This continued, and MRI was discussed but not pursued. No additional work-up or testing was recommended. care: good care, initiated at week # (8) and pounds weight gain (12) Dating criteria OB: based on 1st trimester US only Ultrasounds: normal 1st trimester US and abnormal US findings (LGA, small jaw) Obstetrical complications: none Medical complications OB: none Preadmission Labs Last OB Lab Results: 2 Blood Type B Negative 01/10/25 16:21 Antibody Screen Negative 01/10/25 16:21 Hct 34.8 % (36-46) L 01/10/25 16:21 Hgb 11.5 g/dL (12.0-16.0) L 01/10/25 16:21 Hep Bs Antigen Negative s/c (NEGATIVE) 07/15/24 09:49 Hepatitis C Antibody Negative s/c (NEGATIVE) 07/15/24 09:49 Rubella Antibody 17.7 IU/mL (>15) 07/15/24 09:49 VZV IgG Antibody Reactive (Non Reactive) 07/15/24 09:49 Glucose 1 Hr 50 gm 174 mg/dL (76-139) H 11/23/24 07:53 Group B Strep (PCR) Pos for grp b strep H 12/22/24 13:49 Glucose Tolerance Testing: Fasting (76), 1 hr (163), 2 hr (173) and 3 hr (124) -: Urine: negative Genetic Screens: Cell-free DNA: Normal External Labs -: Urine: negative Prior (ies) Past Pregnancies Del. Date GA/Weeks Labor Lgth Wt Sex Route Outcome Anesthesia Place Delv Breastfeed Preg Comp Name 03/22/23 39.4 7 8 lb 11 oz Male vaginal live - full term none IH 3 months macrosomia John Hx # Term Pregnancies: 1 Hx # Pregnancies: 0 Number of Living Children: 0 Multiple births: 0 Spontaneous abortions: 0 Ectopic pregnancies: 0 Elective abortions: 0 Evaluation Evaluation Baseline heart rate: 140 Variability: Moderate (11-25) monitor accelerations: Present Monitor Decelerations: Absent Contraction Frequency (minutes): 4 Status: Category l Dilation (cm): 6 Effacement (%): 90 station: 0 PFSH Medical History (Updated 09/25/24 @ 08:13 by Diana Singh MD) Scoliosis Psoriasis Impetigo Surgical History (Updated 09/17/22 @ 21:30 by Kaylin Desir) Anesthesia History of third molar tooth extraction Family History (Updated 06/05/24 @ 14:08 by Letha Corbin RN) Mother Hypothyroidism Thyroid nodule Grandmother Psoriasis Lung cancer Ovarian cancer Grandfather Lung cancer Family/Other Breast cancer Family/Other Hypothyroidism Grandfather Diabetes mellitus Family/Other Breast cancer Grandmother Diabetes mellitus Social History marital status: number of children: 2 (includes stepson who stays with them every other weekend) household members: spouse and children lives independently: Yes caregiver/support person: Yes housing: house pets and animals: Yes (3 dogs; aware of toxo precautions outdoors) education level: master's degree 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) current occupational exposures/hazards: No special kiran needs: No travel history: over 6 months ago seatbelt use: always water heater temp set < 120 deg: Yes working smoke detector in home: Yes fire extinguisher in home: Yes carbon monox detector in home: Yes firearms in home: Yes firearms unloaded and locked: Yes do you feel safe at home: Yes Smoking Status: Never smoker second hand exposure: No alcohol intake: former (very occasionally when not ) substance use type: does not use (denies as of 06/05/24) and marijuana during the past year weight has: other (son is only 15 months old) well-balanced diet: daily or most days daily servings fruits/ve-4 caffeine: Yes (single AM cup coffee) Type(s) of exercise: walking frequency: daily Meds Home Medications and Allergies Home Medications Medication Instructions Recorded Confirmed Type prenat.vits,jeremiah,[id number] 1 tab PO DAILY 08/08/22 01/10/25 History Allergies Allergy/AdvReac Type Severity Reaction Status Date / Time shrimp Allergy Intermediate Swelling Verified 12/30/24 08:43 of Lip/Tongue/Throat cheese AdvReac Mild Cough Verified 12/30/24 08:43 OB Exam Resp Effort & Inspection: normal respiratory effort Auscultation: clear to auscultation bilaterally Cardio Rate: regular rate Rhythm: regular rhythm Heart Sounds: S1 normal, S2 normal and no murmurs GI Inspection: non-distended Palpation: Yes soft and No tender Presentation: vertex Objective Labs 01/10/25 16:21 Labs: Laboratory Results - last 24 hr 01/10/25 16:21 WBC 9.0 RBC 4.47 Hgb 11.5 L Hct 34.8 L MCV 77.7 L MCH 25.6 L MCHC 33.0 RDW 13.6 Plt Count 210 Neut % (Auto) 67.7 Lymph % (Auto) 26.2 [place] % (Auto) 5.1 Eos % (Auto) 0.6 L Baso % (Auto) 0.4 Neut # (Auto) 6100 Lymph # (Auto) 2400 [place] # (Auto) 500 Eos # (Auto) 100 Baso # (Auto) 0 Blood Type B Negative Antibody Screen Negative Assessment and Plan Assessment and Plan Assessment and Plan narrative: Pt is a 29yo at 38w2d who presented with regular painful contractions, in labor. GBS positive, Rh positive. - Expectant management, anticipate - FHT reassuring - GBS positive, Ampicillin initiated. Consider AROM after adequate if not with significant cervical change - Desires natural methods for pain control, may use nitrous Time-Based Coding :: [TOTAL MINUTES] spent with patient and on the chart (including review of chart, obtaining history, exam, reviewing outside data, placing orders, documenting exam and treatment plan, and counseling patient) on [DATE].
[2025-01-10] MEDS: AMPICILLIN 1,000 MG in SODIUM CHLORIDE 0.9% 100 ML 200 MG IV (22:37)
--- NOTE | 2025-01-10 23:09 | PM.OBPNLAB ---
Date/Time Date Patient Seen: 01/10/25 Time Patient Seen: 23:09 Pain Control Pain control: tolerating well Pelvic Exam Dilation (cm): 6 Effacement (%): 90 station: 0 Amniotic membrane status: Ruptured Contractions Monitor mode: External Contraction pattern: Irregular Status status: Category l Heart Rate Baseline: 120 Monitor Accelerations: Present Monitor Decelerations: Absent Monitor Variability: Moderate Assessment and Plan Comments: Pt is a 29yo at 38w2d who presented with regular painful contractions, in labor. GBS positive, Rh positive. After adequate GBS prophylaxis and informed consent, AROM performed with clear fluid present. - Expectant management, anticipate - FHT reassuring, intermittent monitoring okay - GBS positive, continue Ampicillin initiated - Desires natural methods for pain control, may use nitrous
[2025-01-11] MEDS: AMPICILLIN 1,000 MG in SODIUM CHLORIDE 0.9% 100 ML 200 MG IV (02:11)
[2025-01-11] MEDS: OXYTOCIN PREMIX 30 UNIT/500 ML PLAST..BAG 200 UNIT IV (06:00)
--- NOTE | 2025-01-11 06:28 | PM.OBPRVD ---
Labor & Delivery Delivery date: 01/11/25 Delivery Time: 05:58 Intrapartal Events: None Cervical ripening method: none Induction method: none Delivery augmentation: rupture of membranes Delivery monitor: external FHT and external uterine Route of delivery: Episiotomy description: None L&D Laceration Description: Perineal - 2nd Degree Quantitative Blood Loss: 200 Anesthesia Type: None Complications: None Narrative: PROCEDURE: at 38w2d presented in active labor and was admitted to Labor and Delivery. The patient progressed through the 1st stage over 6 hours. ROM occured at 23:05 with clear fluid. Pain was controlled with natural methods. The patient progressed through the 2nd stage over 38min and delivered a viable male with APGARs 9/9 at 5:58 via without complications. The cord was cut and clamped after it stopped pulsating. The placenta delivered with gentle cord traction, and appeared complete. The perineum and vagina were inspected with 2nd degree perineal laceration repaired with 2-O Vicryl in the usual fashion. Needle and sponge counts were correct.? The vagina was inspected and no items were left in situ. Cyndi was doing well with Nitin, her , and mother at bedside. PREPROCEDURE DIAGNOSIS: Intrauterine at 38w3d GBS positive RH negative POSTPROCEDURE DIAGNOSIS: Intrauterine at 38w3d, delivered Same as preprocedure Baby 1: Infant gender: Male Presentation: vertex Position: Left Occiput Anterior Placenta delivery description: Spontaneous Cord Vessel Description: 3 Vessels score (1 min): 9 score (5 min): 9 weight: 8 lb 6.535 oz Plan for aftercare: Routine care
[2025-01-11] MEDS: ACETAMINOPHEN 325 MG TABLET 650 MG PO ×4 (07:05→23:23)
[2025-01-11] MEDS: IBUPROFEN 600 MG TABLET PO ×3 (07:05→18:26)
[2025-01-11] MEDS: DERMOPLAST SPRAY 20% 60 ML 1 SPRAY TOP (07:06)
[2025-01-11] MEDS: RHO(D) IMMUNE GLOBULIN 1,500 UNIT SYRINGE 1500 UNIT IM (18:26)
[2025-01-12] MEDS: ACETAMINOPHEN 325 MG TABLET 650 MG PO (05:52)
--- NOTE | 2025-01-12 05:53 | P.DS_ITS ---
Discharge Providers Provider Date of admission: 01/10/25 15:09 Discharge Date: 01/12/25 Primary care physician: Diana Singh MD Consults: 01/10/25 17:18 Consult to Anesthesiology Urgent Comment: Consulting Provider: Anesthesiologist Reason for consultation: Epidural 01/12/25 06:27 Consult to Automobile Leasing Supervisor Routine Comment: Discharge provider: Diana Singh MD Summary Hospital Course Date Patient Seen: 01/12/25 Time Patient Seen: 05:20 Diagnoses: Intrauterine at 38w3d GBS positive RH negative Hospital Course: The pt presented in active labor. AROM was performed with clear fluid present. She progressed to full dilation and had a of a viable baby boy without complications. 2nd degree perineal laceration was repaired. , there were no complications. At the time of discharge she was voiding, ambulating, and passing flatus without difficulty. Her lochia was decreasing appropriately. Her pain was well controlled. She was bottle feeding her baby without issues. She will f/u in 6 weeks for check. Peripartum Data Infant Delivery Method: Natural Vaginal Laceration Description: Perineal - 2nd Degree Episiotomy description: None Procedures: Spontaneous vaginal delivery complications: none 1: Gender: Male Disposition of : home Time Spent with Patient Time attestation: Total time spent providing and/or coordinating discharge services: Objective Labs 01/10/25 16:21 Exam Narrative Exam Narrative: Gen: NAD, sitting comfortably in bed, appears well CV: RRR, no murmurs Resp: clear to auscultation bilaterally Abd: soft, appropriately tender, fundus firm and below the umbilicus, nondistended Ext: no edema Discharge Plan Discharge Plan Patient Disposition: Home Discharge orders & Medications Prescriptions: Continued prenat.vits,jeremiah,[id number] Tablet 1 tab PO DAILY Follow up/Referrals: Diana Singh MD [Primary Care Provider] - 6 Weeks Diet/Activity/Treatments Diet: Diet as Tolerated and Regular Skin/Wound/Dressing Care Report to your healthcare provider any signs of infection, such as:: chills, fever, increased pain and unusual drainage Visit Report/Discharge Packet Instructions: DI for Labor and Delivery, Vaginal Stand Alone Forms: Patient Portal/API, Stroke Signs & Symptoms Discharge Data Primary Care Provider: Diana Singh
[2025-01-12 08:08] VITALS: BP 122/69
[2025-01-12 08:11] VITALS: BP 122/69
[2025-01-12 08:21] VITALS: BP 122/69
[2025-01-12 10:31] VITALS: BP 122/69; RESP 17
== END 2025-01-12 11:35 | disposition home or self-care (01) | DRG 807 ==
PROVIDERS: Admitting Provider Family Medicine; PCP Family Medicine; Referring Provider Family Medicine; Visit Provider Family Medicine
DX: O36.63X0 Maternal care for excessive fetal growth, third trimester, not applicable or unspecified (principal); Z37.0 Single live birth; Z3A.38 38 weeks gestation of pregnancy; O99.824 Streptococcus B carrier state complicating childbirth; O70.1 Second degree perineal laceration during delivery
CPT/HCPCS: 36415; 85025; 86850; 86900; 86901; G0379; J0290; J2590; J2790

== ENCOUNTER → 2025-01-19 15:07 | Outpatient (CLI) | payer OTHER, SELFPAY ==
--- NOTE | 2025-01-19 15:08 | DI.US.S_ITS ---
PROCEDURE: US PELVIC COMPLETE INDICATIONS: vag bleeding TECHNIQUE: Real-time scanning was performed of the pelvic organs, with image documentation. COMPARISON: None. FINDINGS: Uterus: Uterus is anteverted and increased in size at 13.3 x 10.1 x 6.2 cm. The myometrium is homogeneous. Large complex collection within the endometrium measuring 7.5 x 4.5 x 2.0 without vascularity, however findings are still concerning for retained products of conception. Ovaries: The ovaries are not visualized. Other: No pathologic free abdominal or pelvic fluid. IMPRESSION: Enlarged uterus with large complex collection within the endometrium. The collection is avascular, however retained products of conception are still in the differential. The ovaries are not seen. We strive to produce accurate, complete, and clear reports of imaging services. To assist us in improving patient care, this report was composed using standard report templates and voice recognition software. Therefore, it may contain abnormal punctuation, insertions and/or omissions. Occasional wrong-word or sound-alike substitutions may occur. Though we review the report and make efforts to correct it, we do recommend that the report be read carefully in proper context to recognize any text inaccuracies. Dictated by: Jamin Edward M.D. on 01/19/2025 at 15:55 Approved by: Jamin Edward M.D. on 01/19/2025 at 16:02
[2025-01-19 15:57] LABS: Add Manual Diff / Slide Review NO; Basophils Absolute Auto 0 /uL (0-100); Basophils Percent Auto 0.3 % (0-2); Eosinophils Absolute Auto 100 /uL (0-450); Eosinophils Percent Auto 1.4 % (2-4); Hematocrit 37.3 % (36-46); Hemoglobin 12.3 g/dL (12.0-16.0); Lymphocytes Absolute Auto 2500 /uL (1100-4500); Lymphocytes Percent Auto 28.8 % (25-40); Mean Corpuscular HGB Conc 32.9 % (30-36); Mean Corpuscular Hemoglobin 25.6 PG (26-34); Mean Corpuscular Volume 77.8 fL (80-100); Monocytes Absolute Auto 500 /uL (0-900); Monocytes Percent Auto 5.2 % (3-14); Neutrophils Absolute Auto 5700 /uL (1500-7000); Neutrophils Percent Auto 64.3 % (50-75); Platelet Count 356 X10^3/uL (150-400); Red Cell Distribution Width 13.9 % (11.6-14.8); White Blood Cell Count 8.9 X10^3/uL (4.5-11.0)
== END ==
PROVIDERS: PCP Family Medicine; Referring Provider Family Medicine; Visit Provider Family Medicine
DX: N93.9 Abnormal uterine and vaginal bleeding, unspecified (principal); O90.89 Other complications of the puerperium, not elsewhere classified; N85.2 Hypertrophy of uterus
CPT/HCPCS: 76856; 85025